=== PATIENT | female | born 1980 | race Caucasian/White ===

== ENCOUNTER 2016-09-25 08:01 | Day surgery (SDC) | payer OTHER ==
[~2016-09-25] VITALS: Ht 170.2 cm; Wt 63.5 kg
--- OUTSIDE RECORDS SUMMARY | 2016-09-25 08:04 | XMS REPORT | Continuity of Care Document ---
Author Author [facility] Organization [facility] Address Unknown Phone Unavailable Support Name Relationship Address Phone ZEB ONEAL MD Caregiver [address], [address] [place] [address] Insurance Providers Payer Name Policy Number Subscriber Name Relationship [facility] [id number] Kaylynn Brown 17 Self / Same As Patient Advance Directives Directive Response Recorded Date/Time Advance Directives No 09/19/16 1:32pm Resuscitation Status Full Code 09/19/16 1:32pm Problems No problem information available. Medications No known medications. Social History Social History Problem Response Recorded Date/Time Alcohol Use Rarely Uses 09/19/2016 1:32pm Recreational Drug Use No 09/19/2016 1:32pm Recent Foreign Travel No 09/19/2016 1:32pm Recent Infectious Disease Exposure No 09/19/2016 1:32pm Smoking Status Never a Smoker 09/19/2016 1:32pm Recent Hopitalizations No 09/19/2016 1:32pm Query Response Start Date Stop Date Smoking Status Never a Smoker Hospital Discharge Instructions No hospital discharge instructions. Plan of Care Discharge Date 09/19/16 1:38pm Prescriptions See Medication Section Functional Status No functional status results. Allergies, Adverse Reactions, Alerts No known allergies. Immunizations No immunization records. Vital Signs Acute Vital Signs Vital Response Date/Time Height (Feet) 5 feet 09/19/2016 1:32pm Height (Inches) 7.00 inches 09/19/2016 1:32pm Height (Calculated Centimeters) 170.747059 cm 09/19/2016 1:32pm Weight (Pounds) 140 pounds 09/19/2016 1:32pm Weight (Ounces) 0.0 oz 09/19/2016 1:32pm Weight (Calculated Grams) 90792.93 gm 09/19/2016 1:32pm Weight (Calculated Kilograms) 63.738337 kilograms 09/19/2016 1:32pm Calculated BMI 21.9 09/19/2016 1:32pm Results No known relevant diagnostic tests, laboratory data and/or discharge summary. Procedures No known history of procedures. Encounters Encounter Location Arrival/Admit Date Discharge/Depart Date Attending Provider Departed Clinic [facility] 09/19/16 5:42am 09/19/16 1: 38pm ZEB ONEAL MD
--- OUTSIDE RECORDS SUMMARY | 2016-09-25 08:05 | XMS REPORT | Continuity of Care Document ---
Author Author [facility] Organization [facility] Address Unknown Phone Unavailable Support Name Relationship Address Phone ZEB ONEAL MD Caregiver [address], [address] [place] [address] Insurance Providers Payer Name Policy Number Subscriber Name Relationship [facility] [id number] Kaylynn Brown 17 Self / Same As [...] 7.00 inches 09/19/2016 1:32pm Height (Calculated Centimeters) 170.334011 cm 09/19/2016 1:32pm Weight (Pounds) 140 pounds 09/19/2016 1:32pm Weight (Ounces) 0.0 oz 09/19/2016 1:32pm Weight (Calculated Grams) 70924.93 gm 09/19/2016 1:32pm Weight (Calculated Kilograms) 63.424898 kilograms 09/19/2016 1:32pm Calculated BMI 21.9 09/19/2016 1:32pm Results No known relevant diagnostic tests, laboratory data and/or discharge summary. Procedures No known history of procedures. Encounters Encounter Location Arrival/Admit Date Discharge/Depart Date Attending Provider Departed Clinic [facility] 09/19/16 5:42am 09/19/16 1: 38pm ZEB ONEAL MD
[2016-09-25 08:34] LABS: BASOPHILS # (AUTO) 0.1 10^3/uL (0.0-0.1); BASOPHILS % (AUTO) 1 % (0-10); EOSINOPHILS # (AUTO) 0.1 10^3/uL (0.0-0.3); EOSINOPHILS % (AUTO) 2 % (0-10); LYMPHOCYTES # (AUTO) 1.4 X 10^3 (1.0-4.0); LYMPHOCYTES % (AUTO) 22 % (12-44); MEAN CORPUSCULAR HEMOGLOBIN 31 PG (25-34); MEAN CORPUSCULAR HGB CONC 33 G/DL (32-36); MEAN CORPUSCULAR VOLUME 93 FL (80-99); MEAN PLATELET VOLUME 9.8 FL (7.4-10.4); MONOCYTES # (AUTO) 0.6 X 10^3 (0.0-1.0); MONOCYTES % (AUTO) 9 % (0-12); NEUTROPHILS # (AUTO) 4.2 X 10^3 (1.8-7.8); NEUTROPHILS % (AUTO) 66 % (42-75); PLATELET COUNT 283 10^3/uL (130-400); RED CELL DISTRIBUTION WIDTH 12.6 % (10.0-14.5); WHITE BLOOD COUNT 6.4 10^3/uL (4.3-11.0)
[2016-09-25] MEDS ORDERED: LACTATED RINGERS 1,000 ML IV PRN (09:08)
[2016-09-25] MEDS ORDERED: MIDAZOLAM 2 MG/2 ML (VERSED) VIAL IV ONE (09:15)
[2016-09-25] MEDS ORDERED: MIDAZOLAM 2 MG/2 ML (VERSED) VIAL ONE (09:45)
[2016-09-25] MEDS ORDERED: fentaNYL INJECTION 100 MCG/2 ML AMP ONE (09:45)
[2016-09-25 10:03] VITALS: BP 132/95
--- NOTE | 2016-09-25 10:06 | Progress Note-Pre Operative ---
Pre-Operative Progress Note H&P Reviewed The H&P was reviewed, patient examined and no changes noted. Date H&P Reviewed: Sep 25, 2016 Time H&P Reviewed: 09:30 Pre-Operative Diagnosis: Rec/Chronic Tons ZEB ONEAL MD Sep 25, 2016 10:06 am
[2016-09-25] MEDS ORDERED: ONDANSETRON 4 MG/2 ML (SDV) Z0FRAN ONE (10:15)
[2016-09-25] MEDS ORDERED: DEXAMETHASONE PF 10 MG/ML (DECADRON) VIAL ONE (10:15)
[2016-09-25] MEDS ORDERED: proPOfol 200 MG/20 ML (DIPRIVAN) VIAL IV ONE (10:15)
[2016-09-25] MEDS ORDERED: LIDOCAINE PF 2% 10 ML (XYLOCAINE) AMP ONE (10:15)
[2016-09-25] MEDS ORDERED: LACTATED RINGERS 1,000 ML IV ONE (10:15)
[2016-09-25] MEDS ORDERED: ROCURONIUM 50 MG/5 ML (ZEMURON) VIAL IV ONE (10:15)
[2016-09-25] MEDS ORDERED: SEVOFLURANE (ULTANE) 15 ML INHAL SOLN ONE (10:15)
[2016-09-25] MEDS ORDERED: NEOSTIGMINE (BLOXIVERZ ) 1 MG/1ML 10 ML VIAL ONE (10:24)
[2016-09-25] MEDS ORDERED: GLYCOPYRROLATE 0.2 MG/ML (ROBINUL) 2 ML VIAL ONE (10:24)
[2016-09-25] MEDS ORDERED: NS IV 1000 ML 1,000 ML IV SCH (10:35)
--- NOTE | 2016-09-25 10:35 | Progress Note-Post Operative ---
Post-Operative Progess Note Pre-Operative Diagnosis Rec/Chronic Tons Post-Operative Diagnosis same Post-Op Procedure Note Date of Procedure: Sep 25, 2016 Name of Procedure: Tonsil Anesthesia Type get Estimated blood loss (mL): minimal Specimen(s) collected tonsils ZEB ONEAL MD Sep 25, 2016 10:35 am
[2016-09-25] MEDS ORDERED: APAP 325 MG/10.15 ML LIQ (TYLENOL) UDC PO PRN (10:45)
[2016-09-25] MEDS ORDERED: HYDROcodone/APAP 7.5MG-325 MG/15 ML (LORTAB) UDC PO PRN (10:45)
[2016-09-25] MEDS ORDERED: morphine INJ 10 MG/ML 1ML (SYR OR VIAL) ONE (10:57)
[2016-09-25] MEDS ORDERED: MEPERIDINE (DEMEROL) INJ 50 MG/ML IVP PRN (11:00)
[2016-09-25] MEDS ORDERED: ONDANSETRON 4 MG/2 ML (SDV) Z0FRAN IVP PRN (11:00)
[2016-09-25] MEDS: morphine INJ 10 MG/ML 1ML (SYR OR VIAL) IVP PRN ×2 (11:07→11:13)
[2016-09-25] MEDS ORDERED: HYDROmorphone (DILAUDID) 2 MG/ML VIAL ONE (11:12)
[2016-09-25] MEDS: HYDROmorphone (DILAUDID) 2 MG/ML VIAL IVP PRN ×2 (11:23→11:35)
[2016-09-25 11:55] VITALS: BP 115/84
[2016-09-25] MEDS ORDERED: AMOX250S5 PO (12:14)
[2016-09-25] MEDS ORDERED: HYDR15SO8 PO (12:14)
[2016-09-25] MEDS ORDERED: DEXAINTSOL PO (12:14)
[2016-09-25] MEDS ORDERED: TETRACAINESUCKERS MT (12:14)
[2016-09-25 12:25] VITALS: BP 117/84
[2016-09-25 12:55] VITALS: BP 116/76
[2016-09-25 14:55] VITALS: BP 116/76
== END 2016-09-25 14:55 | disposition home or self-care (01) ==
LOC: SDC 08:01
PROVIDERS: ATTEND Otolaryngology Otolaryngology/Facial Plastic Surgery
DX: J35.01 Chronic tonsillitis (principal)
CPT/HCPCS: 36415; 84703; 85025; 87081